=== PATIENT | female | born 1980 | race African-American/Black ===

== ENCOUNTER 2016-05-11 16:58 | Emergency (ER) | payer MEDICARE ==
[~2016-05-11] VITALS: Ht 167.6 cm; Wt 80.0 kg
[2016-05-11 18:51] LABS: CLARITY URINE TURBID (CLEAR); COLOR URINE YELLOW (YELLOW); GLUCOSE URINE NEGATIVE (NEGATIVE); KETONES URINE NEGATIVE (NEGATIVE); LEUKOCYTE ESTERASE URINE 3+ (NEGATIVE); NITRITE URINE POSITIVE (NEGATIVE); OCCULT BLOOD URINE 1+ (NEGATIVE); PROTEIN URINE 2+ (NEGATIVE); SPECIFIC GRAVITY URINE 1.011 (1.005-1.030); UROBILINOGEN URINE 0.2 E.U./dL (0.2-1.0)
[2016-05-11 19:06] LABS: HEMATOCRIT. 37.1 % (36.0-48.0); HEMOGLOBIN. 12.4 g/dL (12.0-16.0); MEAN CORPUSCULAR HEMOGLOBIN 30.4 pg (28.0-32.0); MEAN CORPUSCULAR HGB CONC 33.4 g/dL (31.0-37.0); MEAN CORPUSCULAR VOLUME 90.8 fL (81.0-99.0); MEAN PLATELET VOLUME 7.2 fl (7.4-10.4); PLATELET 409 x1000/uL (130-400); RED BLOOD CELL COUNT 4.08 mill/uL (4.2-5.4); RED CELL DISTRIBUTION WIDTH 13.7 % (11.6-14.6); WHITE BLOOD COUNT 10.4 x1000/uL (4.5-11.0)
[2016-05-11 19:07] LABS: DIFFERENTIAL COMMENT 1
[2016-05-11 19:13] LABS: CHLORIDE 104 mEq/L (98-107); INDEX HEMOLYSI 1 (1-3); INDEX ICTERIC 1 (1-4); INDEX LIPEMIC 1 (1-3)
[2016-05-11 19:13] LABS: RBC URINE NONE SEEN /hpf (0-2); WBC URINE 50-100 /hpf (0-2)
[2016-05-11 19:14] LABS: BACTERIA URINE 4+; SQUAMOUS EPITHELIAL CELL URINE FEW /lpf (RARE/1+)
[2016-05-11 19:14] LABS: PROTHROMBIN TIME 10.3 sec
[2016-05-11 19:17] LABS: ALBUMIN 3.3 g/dL (3.4-5.0); ANION GAP 16; CALCIUM 9.1 mg/dL (8.5-10.1); CARBON DIOXIDE 22 mEq/L (21-32); UREA NITROGEN BLOOD 5 mg/dL (7-21)
[2016-05-11 19:21] LABS: ALANINE AMINOTRANSFERASE 25 IU/L (13-61); eGFR > 60 mL/min (>60)
[2016-05-11 19:30] VITALS: BP 145/98
[2016-05-11 19:43] LABS: ATYPICAL LYMPHOCYTES 3
[2016-05-11 19:44] LABS: ANISOCYTOSIS 1+; PLATELET ESTIMATE SLIGHTLY INCREASED
[2016-05-11 20:00] LABS: *AMPHETAMINES SCREEN URINE NEGATIVE (NEGATIVE); *BARBITURATES SCREEN URINE NEGATIVE (NEGATIVE); *BENZODIAZEPINES SCREEN URINE NEGATIVE (NEGATIVE); *COCAINE SCREEN URINE NEGATIVE (NEGATIVE); ECSTASY MDMA SCREEN URINE NEGATIVE (NEGATIVE); METHADONE URINE SCREEN NEGATIVE (NEGATIVE); PHENCYCLIDINE URINE SCREEN NEGATIVE (NEGATIVE)
[2016-05-11 20:14] LABS: CANNABINOID URINE SCREEN PRESUMTIVE POSITIVE (NEGATIVE); OPIATES URINE SCREEN PRESUMTIVE POSITIVE (NEGATIVE)
== END 2016-05-11 20:33 | disposition home or self-care (01) ==
LOC: ER 16:58
DX: N30.00 Acute cystitis without hematuria (principal); I11.9 Hypertensive heart disease without heart failure; F17.200 Nicotine dependence, unspecified, uncomplicated; Z91.09 Other allergy status, other than to drugs and biological substances
CPT/HCPCS: 36415; 74176; 80053; 80305; 81001; 81025; 85025; 85610; 99285

== ENCOUNTER 2017-02-11 14:51 | Emergency (ER) | payer MEDICAID, MEDICARE ==
[~2017-02-11] VITALS: Ht 172.7 cm; Wt 77.0 kg
[2017-02-11 14:54] VITALS: BP 160/96
== END 2017-02-11 22:09 | disposition left against medical advice (07) ==
LOC: ER 15:02
DX: M54.5 Low back pain (principal); Z53.21 Procedure and treatment not carried out due to patient leaving prior to being seen by health care provider

== ENCOUNTER 2020-12-01 19:53 | Emergency (ER) | payer MEDICAID, MEDICARE ==
[~2020-12-01] VITALS: Ht 180.3 cm; Wt 91.0 kg
[2020-12-01] MEDS ORDERED: VISCOUS LIDOCAINE 2% 15 ML UDC PO STA (20:32)
[2020-12-01] MEDS ORDERED: FAMOTIDINE 20MG/2ML VIAL IV STA (20:32)
[2020-12-01] MEDS ORDERED: MORPHINE SULFATE 4 MG/ML CPJ (NOT FOR IM USE) IV ONE (20:45)
[2020-12-01] MEDS ORDERED: SODIUM CHLORIDE 0.9% 1,000 ML IV ONE (20:45)
[2020-12-01 20:50] LABS: BASOPHILS % 0.3 % (0.0-2.0); HEMATOCRIT. 35.1 % (36.0-48.0); HEMOGLOBIN. 11.8 g/dL (12.0-16.0); LYMPHOCYTES % 9.4 % (20.0-50.0); MEAN CORPUSCULAR HEMOGLOBIN 28.6 pg (28.0-32.0); MEAN CORPUSCULAR VOLUME 85.1 fL (81.0-99.0); MONOCYTES % 2.9 % (2.0-8.0); NEUTROPHILS % 87.4 % (40.0-76.0); PLATELET 367 x1000/uL (130-400); RED BLOOD CELL COUNT 4.12 mill/uL (4.2-5.4); RED CELL DISTRIBUTION WIDTH 19.9 % (11.6-14.6)
[2020-12-01 20:56] LABS: CHLORIDE 113 mEq/L (98-107)
[2020-12-01 20:58] LABS: HCG SCREEN NEGATIVE
[2020-12-01 20:59] LABS: PROTHROMBIN TIME 11.1 sec (9.6-11.0)
[2020-12-01] MEDS ORDERED: MORPHINE SULFATE 2 MG/ML CPJ (NOT FOR IM USE) IV NR (21:15)
[2020-12-01 21:37] LABS: COLOR URINE YELLOW (YELLOW); KETONES URINE 1+ (NEGATIVE); LEUKOCYTE ESTERASE URINE NEGATIVE (NEGATIVE); NITRITE URINE NEGATIVE (NEGATIVE); OCCULT BLOOD URINE 1+ (NEGATIVE); PROTEIN URINE TRACE (NEGATIVE); SPECIFIC GRAVITY URINE 1.013 (1.005-1.030); UROBILINOGEN URINE 0.2 E.U./dL (0.2-1.0)
[2020-12-01 21:38] LABS: CLARITY URINE HAZY (CLEAR)
[2020-12-01 22:03] LABS: *AMPHETAMINES SCREEN URINE NEGATIVE (NEGATIVE); METHADONE URINE SCREEN NEGATIVE (NEGATIVE); OPIATES URINE SCREEN NEGATIVE (NEGATIVE); PHENCYCLIDINE URINE SCREEN NEGATIVE (NEGATIVE)
[2020-12-01 22:04] LABS: *BARBITURATES SCREEN URINE NEGATIVE (NEGATIVE); *BENZODIAZEPINES SCREEN URINE NEGATIVE (NEGATIVE); *COCAINE SCREEN URINE NEGATIVE (NEGATIVE)
[2020-12-01 22:21] LABS: CANNABINOID URINE SCREEN PRESUMTIVE POSITIVE (NEGATIVE)
[2020-12-02] MEDS ORDERED: FAMO-135 MT (00:35)
[2020-12-02] MEDS ORDERED: KETOROLAC 15MG/ML VIAL IV ONE (00:45)
[2020-12-02 02:33] VITALS: BP 129/68
== END 2020-12-02 02:35 | disposition home or self-care (01) ==
LOC: ER 19:53
DX: R10.84 Generalized abdominal pain (principal); I50.9 Heart failure, unspecified; Z91.09 Other allergy status, other than to drugs and biological substances
CPT/HCPCS: 36415; 74176; 80053; 80305; 81003; 81025; 83690; 84703; 85025; 85610; 96361; 96374; 96375; 99284; J1885; J2270; J3490; J7030

== ENCOUNTER 2021-06-30 09:35 | Emergency (ER) | payer MEDICAID, MEDICARE ==
[~2021-06-30] VITALS: Ht 157.5 cm; Wt 75.0 kg
[~2021-06-30 09:35] MED LIST: FAMO-135 MT
[2021-06-30 09:37] VITALS: BP 149/72
[2021-06-30] MEDS ORDERED: IBUPROFEN 400MG TABLET PO ONE (10:15)
[2021-06-30] MEDS ORDERED: CYCLOBENZAPRINE 10MG TABLET PO ONE (10:15)
[2021-06-30] MEDS ORDERED: CYCL10TA7 MT (10:19)
== END 2021-06-30 11:11 | disposition home or self-care (01) ==
LOC: ER 09:35
DX: M54.9 Dorsalgia, unspecified (principal); I11.0 Hypertensive heart disease with heart failure; I50.9 Heart failure, unspecified; Z91.048 Other nonmedicinal substance allergy status
CPT/HCPCS: 99283

== ENCOUNTER 2021-08-11 23:28 | Emergency (ER) | payer MEDICAID ==
[~2021-08-11] VITALS: Ht 170.2 cm; Wt 88.2 kg
[~2021-08-11 23:28] MED LIST changes: +CYCL10TA21 MT
[2021-08-12] MEDS ORDERED: AMOX1TAB16 MT ×2 (02:18→20:21)
[2021-08-12 02:25] VITALS: BP 164/107
[2021-08-12] MEDS ORDERED: HYDROCODONE/ACETAMINOPHEN 5/325MG TABLET PO ONE (02:30)
[2021-08-12] MEDS ORDERED: AMOXICILLIN/POTASSIUM CLAVULANATE 875/125MG TAB PO ONE (02:30)
[2021-08-12] MEDS ORDERED: IBUP-2028 MT (20:23)
== END 2021-08-12 02:25 | disposition home or self-care (01) ==
LOC: ER 23:55
DX: K04.7 Periapical abscess without sinus (principal); K02.9 Dental caries, unspecified; I11.0 Hypertensive heart disease with heart failure; I50.9 Heart failure, unspecified; F12.10 Cannabis abuse, uncomplicated; Z91.09 Other allergy status, other than to drugs and biological substances
CPT/HCPCS: 99283

== ENCOUNTER 2021-08-12 16:12 | Emergency (ER) | payer MEDICAID ==
[~2021-08-12] VITALS: Ht 170.2 cm; Wt 77.0 kg
[~2021-08-12 16:12] MED LIST changes: +AMOX1TAB16 MT
[2021-08-12] MEDS ORDERED: AMOXICILLIN/POTASSIUM CLAVULANATE 875/125MG TAB PO ONE (16:30)
[2021-08-12] MEDS ORDERED: ACETAMINOPHEN 325MG TABLET PO ONE (16:30)
[2021-08-12] MEDS ORDERED: IBUPROFEN 400MG TABLET PO ONE (16:30)
[2021-08-12] MEDS ORDERED: AMOX1TAB16 MT (20:21)
[2021-08-12] MEDS ORDERED: IBUP-2028 MT (20:23)
[2021-08-12] MEDS ORDERED: ACETAMINOPHEN 325MG TABLET PO NR (20:30)
[2021-08-12] MEDS ORDERED: IBUPROFEN 400MG TABLET PO NR (20:30)
[2021-08-12] MEDS ORDERED: AMOXICILLIN/POTASSIUM CLAVULANATE 875/125MG TAB PO NR (20:30)
[2021-08-13 00:12] VITALS: BP 115/75
== END 2021-08-13 00:12 | disposition home or self-care (01) ==
LOC: ER 16:12
DX: K04.7 Periapical abscess without sinus (principal); I11.0 Hypertensive heart disease with heart failure; I50.9 Heart failure, unspecified; F12.10 Cannabis abuse, uncomplicated; Z79.899 Other long term (current) drug therapy
CPT/HCPCS: 99283

== ENCOUNTER 2022-06-20 16:26 | Emergency (ER) | payer MEDICAID ==
[~2022-06-20] VITALS: Ht 172.7 cm; Wt 73.0 kg
[~2022-06-20 16:26] MED LIST changes: +IBUP-2028 MT
[2022-06-20 23:55] LABS: BASOPHILS % 0.8 % (0.0-2.0); EOSINOPHILS % 0.9 % (0.0-5.0); HEMATOCRIT. 36.9 % (36.0-48.0); HEMOGLOBIN. 12.2 g/dL (12.0-16.0); LYMPHOCYTES % 34.8 % (20.0-50.0); MEAN CORPUSCULAR HEMOGLOBIN 29.5 pg (28.0-32.0); MEAN CORPUSCULAR VOLUME 89.5 fL (81.0-99.0); MEAN PLATELET VOLUME 7.9 fl (7.4-10.4); MONOCYTES % 7.8 % (2.0-8.0); NEUTROPHILS % 55.7 % (40.0-76.0); PLATELET 264 x1000/uL (130-400); RED BLOOD CELL COUNT 4.12 mill/uL (4.2-5.4); RED CELL DISTRIBUTION WIDTH 16.5 % (11.6-14.6)
[2022-06-20 23:58] LABS: CLARITY URINE CLEAR (CLEAR); COLOR URINE YELLOW (YELLOW); KETONES URINE TRACE (NEGATIVE); LEUKOCYTE ESTERASE URINE NEGATIVE (NEGATIVE); NITRITE URINE NEGATIVE (NEGATIVE); OCCULT BLOOD URINE 2+ (NEGATIVE); PH URINE 7.5 (4.5-8.0); PROTEIN URINE TRACE (NEGATIVE); SPECIFIC GRAVITY URINE 1.014 (1.005-1.030)
[2022-06-21] LABS: CHLORIDE 108 mEq/L (98-107)
[2022-06-21 00:03] LABS: HCG SCREEN NEGATIVE
[2022-06-21 01:21] VITALS: BP 157/112
[2022-06-21] MEDS ORDERED: MEDR10TA MT (01:22)
== END 2022-06-21 02:03 | disposition home or self-care (01) ==
LOC: ER 16:26
DX: N93.9 Abnormal uterine and vaginal bleeding, unspecified (principal); I11.0 Hypertensive heart disease with heart failure; I50.9 Heart failure, unspecified; F12.10 Cannabis abuse, uncomplicated
CPT/HCPCS: 36415; 76830; 76856; 80053; 81003; 84703; 85025; 86850; 86900; 99284

== ENCOUNTER 2022-11-24 06:22 | Emergency (ER) | payer MEDICAID ==
[~2022-11-24] VITALS: Ht 170.2 cm; Wt 77.0 kg
[~2022-11-24 06:22] MED LIST changes: +MEDR10TA MT
[2022-11-24 06:43] VITALS: TEMP 98.2; O2SAT 100
[2022-11-24] MEDS ORDERED: LISI10TA26 MT ×3 (07:27→07:36)
[2022-11-24] MEDS ORDERED: METO-385 MT ×3 (07:27→07:36)
[2022-11-24] MEDS ORDERED: POTA8CAP20 MT ×3 (07:27→07:36)
[2022-11-24] MEDS ORDERED: FURO40TA5 MT ×3 (07:27→07:36)
[2022-11-24] MEDS ORDERED: EPIN0.3A3 IM (07:27)
[2022-11-24] MEDS ORDERED: OCUFLX EACHEYE (07:32)
[2022-11-24 07:46] LABS: BASOPHILS % 0.6 % (0.0-2.0); EOSINOPHILS % 2.6 % (0.0-5.0); HEMATOCRIT. 35.3 % (36.0-48.0); HEMOGLOBIN. 11.8 g/dL (12.0-16.0); LYMPHOCYTES % 36.1 % (20.0-50.0); MEAN CORPUSCULAR HEMOGLOBIN 29.4 pg (28.0-32.0); MEAN CORPUSCULAR HGB CONC 33.4 g/dL (31.0-37.0); MEAN PLATELET VOLUME 7.5 fl (7.4-10.4); MONOCYTES % 8.7 % (2.0-8.0); PLATELET 206 x1000/uL (130-400); RED BLOOD CELL COUNT 4.01 mill/uL (4.2-5.4); WHITE BLOOD COUNT 5.8 x1000/uL (4.5-11.0)
[2022-11-24 07:57] LABS: HCG SCREEN NEGATIVE
[2022-11-24 08:00] LABS: CHLORIDE 113 mEq/L (98-107); INDEX HEMOLYSI 1 (1-3); INDEX ICTERIC 1 (1-4); INDEX LIPEMIC 1 (1-3); POTASSIUM 3.6 mEq/L (3.5-5.1); SODIUM 141 mEq/L (136-145)
[2022-11-24 08:10] LABS: ALANINE AMINOTRANSFERASE 32 IU/L (13-61); ALBUMIN 3.6 g/dL (3.4-5.0); ASPARTATE AMINOTRANSFERASE 36 IU/L (15-37); BILIRUBIN TOTAL 0.6 mg/dL (0.1-1.0); CARBON DIOXIDE 21 mEq/L (21-32); CREATININE 0.6 mg/dL (0.6-1.3); GLUCOSE 99 mg/dL (70-105); NT PRO B-TYPE NATRIURETIC PEP 92 pg/mL (5-125); PROTEIN TOTAL 7.4 g/dL (6.0-8.3); UREA NITROGEN BLOOD 8 mg/dL (7-21)
[2022-11-24 08:28] LABS: CLARITY URINE CLEAR (CLEAR); COLOR URINE YELLOW (YELLOW); GLUCOSE URINE NEGATIVE (NEGATIVE); KETONES URINE TRACE (NEGATIVE); LEUKOCYTE ESTERASE URINE NEGATIVE (NEGATIVE); NITRITE URINE NEGATIVE (NEGATIVE); OCCULT BLOOD URINE NEGATIVE (NEGATIVE); PROTEIN URINE 1+ (NEGATIVE); SPECIFIC GRAVITY URINE 1.023 (1.005-1.030)
[2022-11-24 08:32] LABS: BACTERIA URINE 1+; WBC URINE 0-2 /hpf (0-2); YEAST URINE NONE SEEN
[2022-11-24 08:44] LABS: RBC URINE 0-2 /hpf (0-2); SQUAMOUS EPITHELIAL CELL URINE 2+ /lpf (RARE/1+)
[2022-11-24 09:00] VITALS: BP 149/89; PULSE 99; RESP 18
[2022-11-24] MEDS ORDERED: IBUPROFEN 600MG TABLET PO ONE (09:00)
== END 2022-11-24 09:43 | disposition home or self-care (01) ==
LOC: ER 06:44
DX: I10 Essential (primary) hypertension (principal); H10.9 Unspecified conjunctivitis; I11.0 Hypertensive heart disease with heart failure; I50.9 Heart failure, unspecified; F12.10 Cannabis abuse, uncomplicated; Z91.048 Other nonmedicinal substance allergy status; Z79.899 Other long term (current) drug therapy; Z98.890 Other specified postprocedural states
CPT/HCPCS: 36415; 71045; 80053; 81003; 81025; 83880; 84703; 85025; 99284

== ENCOUNTER 2022-12-14 03:16 | Emergency (ER) | payer MEDICAID ==
[~2022-12-14] VITALS: Ht 172.7 cm; Wt 84.5 kg
[~2022-12-14 03:16] MED LIST changes: +EPIN0.3A3 IM; +FURO40TA5 MT; +LISI10TA26 MT; +METO-385 MT; +OCUFLX EACHEYE; +POTA8CAP20 MT
[2022-12-14 03:41] VITALS: TEMP 98.6; O2SAT 100
[2022-12-14 04:17] LABS: BASOPHILS % 0.8 % (0.0-2.0); EOSINOPHILS % 2.7 % (0.0-5.0); HEMATOCRIT. 38.2 % (36.0-48.0); HEMOGLOBIN. 12.7 g/dL (12.0-16.0); LYMPHOCYTES % 33.6 % (20.0-50.0); MEAN CORPUSCULAR HGB CONC 33.3 g/dL (31.0-37.0); MEAN CORPUSCULAR VOLUME 87.3 fL (81.0-99.0); MEAN PLATELET VOLUME 7.4 fl (7.4-10.4); NEUTROPHILS % 54.9 % (40.0-76.0); PLATELET 449 x1000/uL (130-400); RED BLOOD CELL COUNT 4.38 mill/uL (4.2-5.4); RED CELL DISTRIBUTION WIDTH 15.9 % (11.6-14.6); WHITE BLOOD COUNT 6.1 x1000/uL (4.5-11.0)
[2022-12-14 04:23] LABS: CHLORIDE 108 mEq/L (98-107); INDEX HEMOLYSI 1 (1-3); INDEX ICTERIC 1 (1-4); INDEX LIPEMIC 1 (1-3); POTASSIUM 3.4 mEq/L (3.5-5.1); SODIUM 140 mEq/L (136-145)
[2022-12-14 04:29] LABS: INR 0.9; PARTIAL THROMBOPLASTIN TIME 26.5 sec (23.4-31.0)
[2022-12-14 04:32] LABS: CARBON DIOXIDE 28 mEq/L (21-32)
[2022-12-14 04:33] LABS: ALANINE AMINOTRANSFERASE 37 IU/L (13-61); ASPARTATE AMINOTRANSFERASE 26 IU/L (15-37); BILIRUBIN TOTAL 0.5 mg/dL (0.1-1.0); CALCIUM 8.4 mg/dL (8.5-10.1); CREATININE 0.7 mg/dL (0.6-1.3); GLUCOSE 97 mg/dL (70-105); NT PRO B-TYPE NATRIURETIC PEP 46 pg/mL (5-125); PROTEIN TOTAL 8.1 g/dL (6.0-8.3); TROPONIN I HIGH SENSITIVITY 5 ng/L (<54); UREA NITROGEN BLOOD 10 mg/dL (7-21)
[2022-12-14] MEDS ORDERED: KETOROLAC 30MG/ML VIAL IV ONE (05:45)
[2022-12-14] MEDS ORDERED: HYDROCODONE/ACETAMINOPHEN 5/325MG TABLET PO ONE (05:45)
[2022-12-14 05:51] LABS: CLARITY URINE CLOUDY (CLEAR); COLOR URINE DARK YELLOW (YELLOW); GLUCOSE URINE NEGATIVE (NEGATIVE); KETONES URINE NEGATIVE (NEGATIVE); LEUKOCYTE ESTERASE URINE NEGATIVE (NEGATIVE); NITRITE URINE NEGATIVE (NEGATIVE); OCCULT BLOOD URINE 3+ (NEGATIVE); PH URINE 6.5 (4.5-8.0); PROTEIN URINE 1+ (NEGATIVE)
[2022-12-14 05:54] LABS: BACTERIA URINE 2+; SQUAMOUS EPITHELIAL CELL URINE 3+ /lpf (RARE/1+); YEAST URINE NONE SEEN
[2022-12-14 06:17] LABS: WBC URINE 0-2 /hpf (0-2)
[2022-12-14] MEDS ORDERED: KETOROLAC 30MG/ML VIAL IV NR (07:00)
[2022-12-14] MEDS ORDERED: HYDROCODONE/ACETAMINOPHEN 5/325MG TABLET PO NR (07:00)
[2022-12-14] MEDS ORDERED: CYCL10TA21 PO (07:45)
[2022-12-14] MEDS ORDERED: IBUP-2028 PO (07:45)
[2022-12-14 07:59] VITALS: BP 142/76; PULSE 71; RESP 16
== END 2022-12-14 08:00 | disposition home or self-care (01) ==
LOC: ER 03:16
DX: M54.50 Low back pain, unspecified (principal); R07.89 Other chest pain; R06.00 Dyspnea, unspecified; I11.0 Hypertensive heart disease with heart failure; I50.9 Heart failure, unspecified; F12.90 Cannabis use, unspecified, uncomplicated; Z88.8 Allergy status to other drugs, medicaments and biological substances; Z79.899 Other long term (current) drug therapy
CPT/HCPCS: 80053; 81003; 83880; 85025; 85610; 85730; 84484; 36415; 71045; 93005; 96374; 99285; J1885; Z7610

== ENCOUNTER 2023-01-09 14:40 | Emergency (ER) | payer MEDICAID ==
[~2023-01-09] VITALS: Ht 172.7 cm; Wt 86.0 kg
[~2023-01-09 14:40] MED LIST changes: +CYCL10TA21 PO; +IBUP-2028 PO
[2023-01-09 14:56] VITALS: O2SAT 100
[2023-01-09 16:15] LABS: HEMATOCRIT 35.5 % (36.0-48.0); HEMOGLOBIN 11.6 g/dL (12.0-16.0); MEAN CORPUSCULAR HEMOGLOBIN 29.1 pg (28.0-32.0); MEAN CORPUSCULAR HGB CONC 32.6 g/dL (31.0-37.0); MEAN CORPUSCULAR VOLUME 89.2 fL (81.0-99.0); PLATELET 417 x1000/uL (130-400); RED BLOOD CELL COUNT 3.98 mill/uL (4.2-5.4); RED CELL DISTRIBUTION WIDTH 15.6 % (11.6-14.6); WHITE BLOOD COUNT 5.9 x1000/uL (4.5-11.0)
[2023-01-09 16:31] LABS: ALANINE AMINOTRANSFERASE 19 IU/L (10-49); ASPARTATE AMINOTRANSFERASE 29 IU/L (<34); BILIRUBIN TOTAL 0.4 mg/dL (0.1-1.0); CALCIUM 8.8 mg/dL (8.7-10.4); CARBON DIOXIDE 22 mEq/L (21-32); CHLORIDE 111 mEq/L (98-107); CREATININE 0.7 mg/dL (0.6-1.0); ETHANOL BLOOD 252 mg/dL (<10); GLUCOSE 91 mg/dL (70-105); POTASSIUM 3.2 mEq/L (3.5-5.1); PROTEIN TOTAL 6.8 g/dL (6.0-8.3); SODIUM 143 mEq/L (136-145); UREA NITROGEN BLOOD 6 mg/dL (9-23)
[2023-01-09] MEDS ORDERED: FAMOTIDINE 20MG TABLET PO ONE (17:00)
[2023-01-09 18:13] VITALS: BP 124/85; PULSE 96; RESP 16; TEMP 98.2
== END 2023-01-09 18:14 | disposition home or self-care (01) ==
LOC: ER 15:43
DX: K62.5 Hemorrhage of anus and rectum (principal); F10.10 Alcohol abuse, uncomplicated; I11.0 Hypertensive heart disease with heart failure; I50.9 Heart failure, unspecified; F12.10 Cannabis abuse, uncomplicated; Z79.899 Other long term (current) drug therapy
CPT/HCPCS: 36415; 80053; 80320; 85027; 86850; 86900; 99283; G0480

== ENCOUNTER 2023-02-04 11:26 | Emergency (ER) | payer MEDICAID ==
[~2023-02-04] VITALS: Ht 172.7 cm; Wt 72.0 kg
[2023-02-04] MEDS ORDERED: IBUP-2028 PO (11:32)
[2023-02-04] MEDS ORDERED: AMOX1TAB16 PO (11:32)
[2023-02-04 11:43] VITALS: BP 151/101; PULSE 82; RESP 16; TEMP 98.5; O2SAT 100
== END 2023-02-04 12:10 | disposition home or self-care (01) ==
LOC: ER 11:26
DX: K04.7 Periapical abscess without sinus (principal); F12.90 Cannabis use, unspecified, uncomplicated; I11.0 Hypertensive heart disease with heart failure; I50.9 Heart failure, unspecified; F10.10 Alcohol abuse, uncomplicated; Z88.8 Allergy status to other drugs, medicaments and biological substances; Y90.9 Presence of alcohol in blood, level not specified
CPT/HCPCS: 99283

== ENCOUNTER 2023-03-01 10:15 | Emergency (ER) | payer MEDICAID ==
[~2023-03-01] VITALS: Ht 167.6 cm; Wt 77.0 kg
[~2023-03-01 10:15] MED LIST changes: +AMOX1TAB16 PO
[2023-03-01 10:18] VITALS: O2SAT 99
[2023-03-01] MEDS ORDERED: IBUP-2029 MT (11:13)
[2023-03-01] MEDS ORDERED: EPIN0.3A3 IM (11:13)
[2023-03-01] MEDS ORDERED: FURO40TA5 MT (11:13)
[2023-03-01 11:42] VITALS: BP 133/78; PULSE 78; RESP 18; TEMP 98.2
== END 2023-03-01 11:43 | disposition home or self-care (01) ==
LOC: ER 10:15
DX: G89.29 Other chronic pain (principal); M54.9 Dorsalgia, unspecified; I11.0 Hypertensive heart disease with heart failure; I50.9 Heart failure, unspecified; J45.909 Unspecified asthma, uncomplicated; Z76.0 Encounter for issue of repeat prescription; Z91.048 Other nonmedicinal substance allergy status; Z79.899 Other long term (current) drug therapy
CPT/HCPCS: 99281

== ENCOUNTER 2023-12-07 09:44 | Emergency (ER) | payer MEDICAID ==
[~2023-12-07] VITALS: Ht 170.2 cm; Wt 78.0 kg
[~2023-12-07 09:44] MED LIST changes: +IBUP-2029 MT
[2023-12-07 09:55] VITALS: O2SAT 99
[2023-12-07 10:01] VITALS: BP 118/85; PULSE 88; RESP 16; TEMP 98.4; O2SAT 99
[2023-12-08] MEDS ORDERED: CETI10CA2 MT (09:39)
== END 2023-12-07 21:17 | disposition left against medical advice (07) ==
LOC: ER 09:44
DX: R07.89 Other chest pain (principal); I11.0 Hypertensive heart disease with heart failure; I50.9 Heart failure, unspecified; J45.909 Unspecified asthma, uncomplicated; F12.10 Cannabis abuse, uncomplicated; Z79.1 Long term (current) use of non-steroidal anti-inflammatories (NSAID); Z79.3 Long term (current) use of hormonal contraceptives; Z79.899 Other long term (current) drug therapy
CPT/HCPCS: 71045; 93005; 99283

== ENCOUNTER 2023-12-08 08:35 | Emergency (ER) | payer MEDICAID ==
[~2023-12-08] VITALS: Ht 167.6 cm; Wt 91.0 kg
[2023-12-08 08:43] VITALS: O2SAT 100
[2023-12-08] MEDS ORDERED: CETI10CA2 MT (09:39)
[2023-12-08 09:48] VITALS: BP 125/69; PULSE 83; RESP 16; TEMP 36.94740; O2SAT 100
[2023-12-09] MEDS ORDERED: AZIT250T MT (00:48)
[2023-12-09] MEDS ORDERED: AMOX-494 MT (00:48)
== END 2023-12-08 09:48 | disposition home or self-care (01) ==
LOC: ER 08:35
DX: J30.9 Allergic rhinitis, unspecified (principal); F12.10 Cannabis abuse, uncomplicated; I10 Essential (primary) hypertension; Z91.018 Allergy to other foods; Z79.899 Other long term (current) drug therapy
CPT/HCPCS: 99282

== ENCOUNTER 2023-12-08 20:07 | Emergency (ER) | payer MEDICAID ==
[~2023-12-08] VITALS: Ht 170.2 cm; Wt 75.0 kg
[~2023-12-08 20:07] MED LIST changes: +CETI10CA2 MT
[2023-12-08 20:19] VITALS: BP 131/85; PULSE 82; RESP 16; TEMP 98.1; O2SAT 100
[2023-12-08 21:37] LABS: BASOPHILS % 0.8 % (0.0-2.0); HEMATOCRIT. 33.4 % (36.0-48.0); HEMOGLOBIN. 11.1 g/dL (12.0-16.0); LYMPHOCYTES % 40.5 % (20.0-50.0); MEAN CORPUSCULAR HEMOGLOBIN 30.1 pg (28.0-32.0); MEAN CORPUSCULAR HGB CONC 33.2 g/dL (31.0-37.0); MEAN CORPUSCULAR VOLUME 90.5 fL (81.0-99.0); MEAN PLATELET VOLUME 7.7 fl (7.4-10.4); MONOCYTES % 9.3 % (2.0-8.0); NEUTROPHILS % 45.4 % (40.0-76.0); PLATELET 324 x1000/uL (130-400); RED BLOOD CELL COUNT 3.68 mill/uL (4.2-5.4); RED CELL DISTRIBUTION WIDTH 14.3 % (11.6-14.6); WHITE BLOOD COUNT 7.6 x1000/uL (4.5-11.0)
[2023-12-08 21:47] LABS: CALCIUM 8.8 mg/dL (8.7-10.4); CARBON DIOXIDE 25 mEq/L (21-32); CHLORIDE 107 mEq/L (98-107); POTASSIUM 3.5 mEq/L (3.5-5.1); SODIUM 139 mEq/L (136-145)
[2023-12-08 21:49] LABS: HCG SCREEN NEGATIVE
[2023-12-08 21:52] LABS: GLUCOSE 85 mg/dL (70-105)
[2023-12-08 21:53] LABS: UREA NITROGEN BLOOD 13 mg/dL (9-23)
[2023-12-08 21:57] LABS: TROPONIN I HIGH SENSITIVITY < 4 ng/L (3.0-34)
[2023-12-09] MEDS ORDERED: AMOX-494 MT (00:48)
[2023-12-09] MEDS ORDERED: AZIT250T MT (00:48)
== END 2023-12-09 00:59 | disposition home or self-care (01) ==
LOC: ER 20:07
DX: J18.9 Pneumonia, unspecified organism (principal); R07.89 Other chest pain; I11.0 Hypertensive heart disease with heart failure; I50.9 Heart failure, unspecified; Z79.1 Long term (current) use of non-steroidal anti-inflammatories (NSAID); Z79.3 Long term (current) use of hormonal contraceptives; Z79.899 Other long term (current) drug therapy
CPT/HCPCS: 36415; 71045; 80048; 83880; 84484; 84703; 85025; 93005; 99285

== ENCOUNTER 2024-01-09 08:28 | Emergency (ER) | payer MEDICAID ==
[~2024-01-09] VITALS: Ht 170.2 cm; Wt 77.0 kg
[~2024-01-09 08:28] MED LIST changes: +AMOX-494 MT; +AZIT250T MT
[2024-01-09 08:31] VITALS: O2SAT 99
[2024-01-09 08:34] VITALS: BP 130/93; PULSE 89; RESP 16; TEMP 98.6; O2SAT 100
[2024-01-09 09:23] LABS: CLARITY URINE CLEAR (CLEAR); COLOR URINE YELLOW (YELLOW); GLUCOSE URINE NEGATIVE (NEGATIVE); KETONES URINE NEGATIVE (NEGATIVE); LEUKOCYTE ESTERASE URINE NEGATIVE (NEGATIVE); NITRITE URINE NEGATIVE (NEGATIVE); OCCULT BLOOD URINE NEGATIVE (NEGATIVE); PROTEIN URINE NEGATIVE (NEGATIVE); SPECIFIC GRAVITY URINE 1.006 (1.005-1.030); UROBILINOGEN URINE 0.2 E.U./dL (0.2-1.0)
[2024-01-09 09:34] LABS: BASOPHILS % 0.4 % (0.0-2.0); EOSINOPHILS % 1.8 % (0.0-5.0); HEMATOCRIT. 36.2 % (36.0-48.0); HEMOGLOBIN. 12.1 g/dL (12.0-16.0); LYMPHOCYTES % 20.3 % (20.0-50.0); MEAN CORPUSCULAR HEMOGLOBIN 29.6 pg (28.0-32.0); MEAN CORPUSCULAR HGB CONC 33.3 g/dL (31.0-37.0); MEAN CORPUSCULAR VOLUME 88.8 fL (81.0-99.0); MEAN PLATELET VOLUME 6.9 fl (7.4-10.4); MONOCYTES % 6.4 % (2.0-8.0); NEUTROPHILS % 71.1 % (40.0-76.0); PLATELET 419 x1000/uL (130-400); RED BLOOD CELL COUNT 4.07 mill/uL (4.2-5.4); RED CELL DISTRIBUTION WIDTH 14.9 % (11.6-14.6); WHITE BLOOD COUNT 7.4 x1000/uL (4.5-11.0)
[2024-01-09 09:38] LABS: CHLORIDE 105 mEq/L (98-107); POTASSIUM 3.7 mEq/L (3.5-5.1); SODIUM 138 mEq/L (136-145)
[2024-01-09 09:39] LABS: CALCIUM 9.8 mg/dL (8.7-10.4); CARBON DIOXIDE 27 mEq/L (21-32)
[2024-01-09 09:44] LABS: CREATININE 0.9 mg/dL (0.6-1.0); GLUCOSE 84 mg/dL (70-105); UREA NITROGEN BLOOD 11 mg/dL (9-23)
[2024-01-09 09:46] LABS: ALANINE AMINOTRANSFERASE 9 IU/L (10-49); ALBUMIN 4.7 g/dL (3.2-4.8); ASPARTATE AMINOTRANSFERASE 23 IU/L (<34); BILIRUBIN TOTAL 0.6 mg/dL (0.1-1.0); PROTEIN TOTAL 8.2 g/dL (6.0-8.3)
[2024-01-09 09:58] LABS: TROPONIN I HIGH SENSITIVITY < 4 ng/L (3.0-34)
== END 2024-01-09 17:01 | disposition left against medical advice (07) ==
LOC: ER 08:28
DX: R06.02 Shortness of breath (principal); I11.0 Hypertensive heart disease with heart failure; I50.9 Heart failure, unspecified; F12.10 Cannabis abuse, uncomplicated; Z79.899 Other long term (current) drug therapy; Z53.21 Procedure and treatment not carried out due to patient leaving prior to being seen by health care provider; Z20.822 Contact with and (suspected) exposure to COVID-19
CPT/HCPCS: 36415; 71046; 80053; 81003; 81025; 83880; 84484; 85025; 87426; 87804; 93005; 99285

== ENCOUNTER 2024-01-20 12:36 | Emergency (ER) | payer MEDICAID ==
[~2024-01-20] VITALS: Ht 172.7 cm; Wt 91.0 kg
[2024-01-20 12:45] VITALS: BP 168/99; PULSE 68; RESP 18; TEMP 99.2; O2SAT 100
== END 2024-01-20 13:00 | disposition left against medical advice (07) ==
LOC: ER 12:56
DX: R05.9 Cough, unspecified (principal); Z53.21 Procedure and treatment not carried out due to patient leaving prior to being seen by health care provider

== ENCOUNTER 2024-02-06 14:31 | Emergency (ER) | payer MEDICAID ==
[~2024-02-06] VITALS: Ht 170.2 cm; Wt 77.1 kg
[2024-02-06 14:33] VITALS: O2SAT 99
[2024-02-06 14:43] VITALS: BP 124/83; PULSE 68; RESP 16; TEMP 98.2; O2SAT 100
[2024-02-07] MEDS ORDERED: DIPH25CA83 MT (17:46)
[2024-02-07] MEDS ORDERED: FAMO-135 MT (17:46)
[2024-02-07] MEDS ORDERED: P50 MT (17:46)
== END 2024-02-06 22:06 | disposition left against medical advice (07) ==
LOC: ER 14:31
DX: T78.40XA Allergy, unspecified, initial encounter (principal); F41.9 Anxiety disorder, unspecified; I11.0 Hypertensive heart disease with heart failure; I50.9 Heart failure, unspecified; Z53.21 Procedure and treatment not carried out due to patient leaving prior to being seen by health care provider; X58.XXXA Exposure to other specified factors, initial encounter

== ENCOUNTER 2024-02-07 12:36 | Emergency (ER) | payer MEDICAID ==
[~2024-02-07] VITALS: Ht 170.2 cm; Wt 72.5 kg
[2024-02-07 12:37] VITALS: O2SAT 97
[2024-02-07 12:39] VITALS: BP 129/87; PULSE 110; RESP 16; TEMP 98.2; O2SAT 100
[2024-02-07] MEDS ORDERED: FAMO-135 MT (17:46)
[2024-02-07] MEDS ORDERED: P50 MT (17:46)
[2024-02-07] MEDS ORDERED: DIPH25CA83 MT (17:46)
== END 2024-02-07 18:51 | disposition home or self-care (01) ==
LOC: ER 12:36
DX: R21 Rash and other nonspecific skin eruption (principal); I11.0 Hypertensive heart disease with heart failure; F10.90 Alcohol use, unspecified, uncomplicated; F12.90 Cannabis use, unspecified, uncomplicated; I50.9 Heart failure, unspecified; Z79.1 Long term (current) use of non-steroidal anti-inflammatories (NSAID); Z79.3 Long term (current) use of hormonal contraceptives; Z79.899 Other long term (current) drug therapy; Y90.9 Presence of alcohol in blood, level not specified
CPT/HCPCS: 99283

== ENCOUNTER 2024-02-14 07:04 | Emergency (ER) | payer MEDICAID ==
[~2024-02-14] VITALS: Ht 172.7 cm; Wt 78.0 kg
[~2024-02-14 07:04] MED LIST changes: +DIPH25CA83 MT; +P50 MT
[2024-02-14 07:08] VITALS: BP 156/96; PULSE 85; RESP 16; TEMP 98.3; O2SAT 100
[2024-02-14] MEDS ORDERED: DIPH25TA62 MT (08:44)
[2024-02-14] MEDS ORDERED: DIPHENHYDRAMINE 50MG CAPSULE PO ONE (08:45)
[2024-02-14] MEDS: DIPHENHYDRAMINE 25MG CAPSULE PO NR (09:00)
== END 2024-02-14 09:14 | disposition home or self-care (01) ==
LOC: ER 07:04
DX: T78.40XA Allergy, unspecified, initial encounter (principal); I11.0 Hypertensive heart disease with heart failure; F41.9 Anxiety disorder, unspecified; F12.90 Cannabis use, unspecified, uncomplicated; F10.20 Alcohol dependence, uncomplicated; I50.9 Heart failure, unspecified; Z79.899 Other long term (current) drug therapy; X58.XXXA Exposure to other specified factors, initial encounter; Y90.9 Presence of alcohol in blood, level not specified
CPT/HCPCS: 99283; Q0163

== ENCOUNTER 2024-05-18 05:13 | Emergency (ER) | payer MEDICAID ==
[~2024-05-18] VITALS: Ht 165.1 cm; Wt 77.0 kg
[~2024-05-18 05:13] MED LIST changes: +DIPH25TA62 MT
[2024-05-18 05:19] VITALS: O2SAT 99
[2024-05-18] MEDS ORDERED: TOPUD MT (07:40)
[2024-05-18 08:11] VITALS: BP 158/98; PULSE 88; RESP 18; TEMP 37.1; O2SAT 98
[2024-05-19] MEDS ORDERED: IOHEXOL-300 100 ML BOTTLE ONE (04:36)
== END 2024-05-18 08:14 | disposition home or self-care (01) ==
LOC: ER 05:13
DX: J02.9 Acute pharyngitis, unspecified (principal); E04.1 Nontoxic single thyroid nodule; I11.0 Hypertensive heart disease with heart failure; I50.9 Heart failure, unspecified; F12.90 Cannabis use, unspecified, uncomplicated; Z79.1 Long term (current) use of non-steroidal anti-inflammatories (NSAID); Z79.3 Long term (current) use of hormonal contraceptives; Z79.899 Other long term (current) drug therapy
CPT/HCPCS: 99283; Q9967

== ENCOUNTER 2024-06-11 08:45 | Emergency (ER) | payer MEDICAID ==
[~2024-06-11] VITALS: Ht 170.2 cm; Wt 128.0 kg
[~2024-06-11 08:45] MED LIST changes: +TOPUD MT
[2024-06-11 08:46] VITALS: O2SAT 100
[2024-06-11 08:50] VITALS: BP 128/76; PULSE 66; RESP 14; TEMP 36.6; O2SAT 99
== END 2024-06-11 10:07 | disposition left against medical advice (07) ==
LOC: ER 08:45
DX: T78.40XA Allergy, unspecified, initial encounter (principal); I11.0 Hypertensive heart disease with heart failure; I50.9 Heart failure, unspecified; Z53.21 Procedure and treatment not carried out due to patient leaving prior to being seen by health care provider; X58.XXXA Exposure to other specified factors, initial encounter

== ENCOUNTER 2024-06-16 11:40 | Emergency (ER) | payer MEDICAID ==
[~2024-06-16] VITALS: Ht 175.3 cm; Wt 80.0 kg
[2024-06-16 11:45] VITALS: O2SAT 99
[2024-06-16 11:51] VITALS: BP 159/101; PULSE 99; RESP 18; TEMP 37.1; O2SAT 100
[2024-06-16 12:32] LABS: BASOPHILS % 0.6 % (0.0-2.0); EOSINOPHILS % 1.6 % (0.0-5.0); HEMATOCRIT. 34.8 % (36.0-48.0); HEMOGLOBIN. 11.5 g/dL (12.0-16.0); LYMPHOCYTES % 32.7 % (20.0-50.0); MEAN CORPUSCULAR HEMOGLOBIN 27.7 pg (28.0-32.0); MEAN CORPUSCULAR HGB CONC 33.2 g/dL (31.0-37.0); MEAN CORPUSCULAR VOLUME 83.4 fL (81.0-99.0); MEAN PLATELET VOLUME 7.3 fl (7.4-10.4); MONOCYTES % 8.2 % (2.0-8.0); NEUTROPHILS % 56.9 % (40.0-76.0); PLATELET 353 x1000/uL (130-400); RED BLOOD CELL COUNT 4.17 mill/uL (4.2-5.4); RED CELL DISTRIBUTION WIDTH 15.4 % (11.6-14.6); WHITE BLOOD COUNT 7.8 x1000/uL (4.5-11.0)
[2024-06-16 12:42] LABS: CARBON DIOXIDE 22 mEq/L (21-32); CHLORIDE 104 mEq/L (98-107); POTASSIUM 3.5 mEq/L (3.5-5.1); SODIUM 137 mEq/L (136-145)
[2024-06-16 12:43] LABS: CALCIUM 9.4 mg/dL (8.7-10.4)
[2024-06-16 12:47] LABS: CREATININE 0.9 mg/dL (0.6-1.0)
[2024-06-16 12:48] LABS: GLUCOSE 104 mg/dL (70-105); UREA NITROGEN BLOOD 18 mg/dL (9-23)
[2024-06-16 12:55] LABS: TROPONIN I HIGH SENSITIVITY < 4 ng/L (3.0-34)
[2024-06-16 13:01] LABS: HCG SCREEN NEGATIVE
[2024-06-16] MEDS ORDERED: AMOX1TAB16 MT (13:13)
== END 2024-06-16 14:00 | disposition home or self-care (01) ==
LOC: ER 11:40
DX: R00.2 Palpitations (principal); K04.7 Periapical abscess without sinus; I11.0 Hypertensive heart disease with heart failure; I50.9 Heart failure, unspecified; F10.90 Alcohol use, unspecified, uncomplicated; F12.90 Cannabis use, unspecified, uncomplicated; Z79.1 Long term (current) use of non-steroidal anti-inflammatories (NSAID); Z79.3 Long term (current) use of hormonal contraceptives; Z79.899 Other long term (current) drug therapy; Y90.9 Presence of alcohol in blood, level not specified
CPT/HCPCS: 36415; 71045; 80048; 83880; 84484; 84703; 85025; 93005; 99285

== ENCOUNTER 2024-06-17 07:36 | Emergency (ER) | payer MEDICAID ==
[~2024-06-17] VITALS: Ht 170.2 cm; Wt 100.0 kg
[2024-06-17 07:38] VITALS: BP 140/80; PULSE 70; RESP 18; TEMP 37.2; O2SAT 99
[2024-06-17] MEDS: ASPIRIN 325MG TABLET PO ONE (08:08)
[2024-06-17] MEDS: ONDANSETRON 4MG ODT PO ONE (08:08)
[2024-06-17 08:21] LABS: CHLORIDE 105 mEq/L (98-107); POTASSIUM 3.9 mEq/L (3.5-5.1); SODIUM 136 mEq/L (136-145)
[2024-06-17 08:22] LABS: CALCIUM 9.7 mg/dL (8.7-10.4); CARBON DIOXIDE 23 mEq/L (21-32)
[2024-06-17 08:23] LABS: BASOPHILS % 0.6 % (0.0-2.0); EOSINOPHILS % 1.3 % (0.0-5.0); HEMATOCRIT. 34.3 % (36.0-48.0); HEMOGLOBIN. 11.1 g/dL (12.0-16.0); LYMPHOCYTES % 32.6 % (20.0-50.0); MEAN CORPUSCULAR HGB CONC 32.4 g/dL (31.0-37.0); MEAN CORPUSCULAR VOLUME 83.3 fL (81.0-99.0); MEAN PLATELET VOLUME 7.4 fl (7.4-10.4); MONOCYTES % 10.1 % (2.0-8.0); NEUTROPHILS % 55.4 % (40.0-76.0); PLATELET 346 x1000/uL (130-400); RED BLOOD CELL COUNT 4.12 mill/uL (4.2-5.4); RED CELL DISTRIBUTION WIDTH 15.4 % (11.6-14.6); WHITE BLOOD COUNT 5.9 x1000/uL (4.5-11.0)
[2024-06-17 08:26] LABS: HCG SCREEN NEGATIVE
[2024-06-17 08:27] LABS: CREATININE 0.7 mg/dL (0.6-1.0); GLUCOSE 105 mg/dL (70-105); UREA NITROGEN BLOOD 8 mg/dL (9-23)
[2024-06-17 08:33] LABS: TROPONIN I HIGH SENSITIVITY < 4 ng/L (3.0-34)
== END 2024-06-17 09:00 | disposition admitted as inpatient to this hospital (09) ==
LOC: ER 07:36 → EDBEDREQ 07:51 → ER 09:00 → EDBEDREQ 09:06 → EDBEDREQTM 09:06 → ENRESERV 09:33 → CANBEDREQ 10:21
DX: R07.89 Other chest pain (principal); R06.02 Shortness of breath; R00.2 Palpitations; I11.0 Hypertensive heart disease with heart failure; I50.9 Heart failure, unspecified; F10.90 Alcohol use, unspecified, uncomplicated; F12.90 Cannabis use, unspecified, uncomplicated; Z79.3 Long term (current) use of hormonal contraceptives; Z79.1 Long term (current) use of non-steroidal anti-inflammatories (NSAID); Z79.899 Other long term (current) drug therapy; Y90.9 Presence of alcohol in blood, level not specified
CPT/HCPCS: 99285; 71045; 80048; 84703; 85025; 84484; 36415; 93005; Q0162

== ENCOUNTER 2024-08-13 00:36 | Emergency (ER) | payer MEDICAID ==
[2024-08-13] MEDS ORDERED: FERR325T6 MT (02:37)
[2024-08-13] MEDS ORDERED: DIPH25TA62 MT (02:37)
[2024-08-13] MEDS ORDERED: FLUT9.9S BOTHNSTRLS (02:37)
[2024-08-13] MEDS ORDERED: BENZ1LOZ73 MT (02:37)
[2024-08-13] MEDS ORDERED: BENZ100C86 MT (02:37)
[2024-08-13 02:54] VITALS: BP 139/89; PULSE 73; RESP 18; O2SAT 98
== END 2024-08-13 02:56 | disposition home or self-care (01) ==
LOC: ER 00:36
DX: J30.9 Allergic rhinitis, unspecified (principal); I11.0 Hypertensive heart disease with heart failure; I50.9 Heart failure, unspecified; F12.90 Cannabis use, unspecified, uncomplicated; Z79.899 Other long term (current) drug therapy; Z79.3 Long term (current) use of hormonal contraceptives; Z79.1 Long term (current) use of non-steroidal anti-inflammatories (NSAID)
CPT/HCPCS: 99283

== ENCOUNTER 2024-09-11 06:19 | Emergency (ER) | payer MEDICAID ==
[~2024-09-11] VITALS: Ht 175.3 cm; Wt 77.3 kg
[~2024-09-11 06:19] MED LIST changes: +BENZ100C86 MT; +BENZ1LOZ73 MT; +FERR325T6 MT; +FLUT9.9S BOTHNSTRLS
[2024-09-11 06:23] VITALS: O2SAT 99
[2024-09-11 07:35] VITALS: BP 140/89; PULSE 92; RESP 20; TEMP 36.7; O2SAT 99
[2024-09-12] MEDS ORDERED: FAMO-135 MT (02:03)
[2024-09-12] MEDS ORDERED: DIPH25CA83 MT (02:03)
== END 2024-09-11 07:44 | disposition left against medical advice (07) ==
LOC: ER 06:19 → CMPBEDREQ 08:12
DX: R06.02 Shortness of breath (principal); I11.0 Hypertensive heart disease with heart failure; I50.9 Heart failure, unspecified; F10.90 Alcohol use, unspecified, uncomplicated; F12.90 Cannabis use, unspecified, uncomplicated; Z79.899 Other long term (current) drug therapy; Z79.3 Long term (current) use of hormonal contraceptives; Z79.1 Long term (current) use of non-steroidal anti-inflammatories (NSAID)
CPT/HCPCS: 93005; 99283

== ENCOUNTER 2024-09-11 22:31 | Emergency (ER) | payer MEDICAID ==
[~2024-09-11] VITALS: Ht 175.3 cm; Wt 77.8 kg
[2024-09-11 22:33] VITALS: BP 145/89; TEMP 37.1; O2SAT 98
[2024-09-11 22:57] VITALS: PULSE 112; RESP 18; O2SAT 100
[2024-09-12] MEDS: DIPHENHYDRAMINE 25MG CAPSULE PO ONE (01:12)
[2024-09-12] MEDS: FAMOTIDINE 20MG TABLET PO ONE (01:12)
[2024-09-12] MEDS ORDERED: FAMO-135 MT (02:03)
[2024-09-12] MEDS ORDERED: DIPH25CA83 MT (02:03)
== END 2024-09-12 03:40 | disposition home or self-care (01) ==
LOC: ER 22:31
DX: T78.40XA Allergy, unspecified, initial encounter (principal); I11.0 Hypertensive heart disease with heart failure; I50.9 Heart failure, unspecified; Z79.1 Long term (current) use of non-steroidal anti-inflammatories (NSAID); Z79.3 Long term (current) use of hormonal contraceptives; Z79.899 Other long term (current) drug therapy; Z88.8 Allergy status to other drugs, medicaments and biological substances
CPT/HCPCS: 99283; Q0163

== ENCOUNTER 2024-09-21 01:32 | Emergency (ER) | payer MEDICAID ==
[~2024-09-21] VITALS: Ht 170.2 cm; Wt 79.0 kg
[2024-09-21 01:34] VITALS: PULSE 109; RESP 18; O2SAT 99
[2024-09-21 01:38] VITALS: BP 160/106; TEMP 36.7; O2SAT 97
[2024-09-21] MEDS ORDERED: LORA10CA MT (01:55)
== END 2024-09-21 02:06 | disposition left against medical advice (07) ==
LOC: ER 01:32
DX: R09.81 Nasal congestion (principal); R00.0 Tachycardia, unspecified; I11.0 Hypertensive heart disease with heart failure; I50.9 Heart failure, unspecified; Z79.899 Other long term (current) drug therapy; Z79.1 Long term (current) use of non-steroidal anti-inflammatories (NSAID); Z79.3 Long term (current) use of hormonal contraceptives
CPT/HCPCS: 99282